=== PATIENT | female | born 1975 | race Caucasian/White ===

== ENCOUNTER 2016-11-15 13:39 | Emergency (ER) | payer OTHER ==
[~2016-11-15] VITALS: Ht 162.6 cm; Wt 78.6 kg
[~2016-11-15 13:39] MED LIST: BUPR100T7 PO; DICL250C PO
[2016-11-15 13:50] VITALS: BP 108/68; PULSE 84; RESP 16; O2SAT 99
--- NOTE | 2016-11-15 15:37 | ED.REPORT ---
HPI-General Illness Date of Service Nov 15, 2016 ED Provider: Abad Wagner MD A 41 year old female with a history of thoracic outlet syndrome, chronic back pain and asthma is referred to the ED from Urgent Care due to chest pain. The pt has been experiencing a tight chest pain intermittently for two weeks. The pain is currently rated between 3/10 and 5/10 and radiates into her left arm and back. It is not exertional. This is accompanied by nausea, cough and pleuritic pain intermittently since onset, left hand numbness today and a gradual onset migraine for five days. She has experienced migraine headaches before but this migraine is accompanied by blurred vision, which is abnormal for her. The migraine is located behind her eyes and is described as an aching pain. She denies fever, shortness of breath, chills and vomiting. The pt believes that her symptoms are due to anxiety or stress, but is concerned because the symptoms are not resolving. The pt previously consumed alcohol daily , but quit two weeks ago. She also changed her diet at that time. The pt has a family history of aneurysm. She denies any other acute complaints at this time. Nursing Notes Stated Complaint: CHEST PAIN Chief Complaint: Chest Pain Nursing Notes Reviewed: Yes Allergies: Coded Allergies: No Known Allergies (Verified Allergy, 03/13/12) Scheduled Bupropion-Expunged Drug, Do Not Renew! (Bupropion SR-Expunged Drug, Do Not Renew !) 100 Mg Tablet.sa 0 PO HS UNABLE TO VERIFY DOSAGE OR FREQUENCY Dicloxacillin Sodium (Dicloxacillin Sodium) 250 Mg Capsule 250 MG PO HS 1/2 tab General Time Seen by MD: 15:36 Chief Complaint Chest pain Hx Obtained From: Patient, Spouse Arrived By: Walk-in Sudden in Onset?: No Onset Occurred: More than a week ago... 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 Physical Exam Constitutional: Well-developed, well-nourished. Not diaphoretic. Head: Normocephalic and atraumatic. Mouth/Throat: Oropharynx is clear and moist. No oropharyngeal exudate. Eyes: EOM are normal. Pupils are equal, round, and reactive to light. Visual gruber normal. Neck: Supple, no tracheal deviation. Cardiovascular: Normal rate, regular rhythm. Equal and intact distal pulses throughout. Pulmonary/Chest: Effort normal and breath sounds normal. No respiratory distress. Abdominal: Soft. No distension. There is no tenderness, rebound, or guarding. Bowel sounds present. Musculoskeletal: Range of motion grossly intact, moving all extremities. No edema or tenderness appreciated. Neurological: AOx3. Grossly nonfocal exam. Strength and sensation intact and equal to bilateral upper and lower extremities. Normal finger to nose testing. Skin: Warm and dry, no rashes or pallor appreciated. Psychiatric: Appropriate mood and affect. Behavior appears normal. Vital Signs Vital Signs Date Time Temp Pulse Resp B/P Pulse Ox O2 Delivery O2 Flow Rate FiO2 11/15/16 21:22 35.8 61 16 105/71 98 Room Air 11/15/16 19:30 63 18 109/61 96 Room Air 11/15/16 13:50 36.8 84 16 108/68 99 Room Air Initial VS: Reviewed Interpretation & Diagnostics Interpretation & Diagnostics: CT Angio Chest PE: IMPRESSION: No pulmonary emboli are present, and there is no sign of aneurysm or aortic dissection. Throughout the visualized chest and upper abdomen no inflammatory process is found. Along the spine a source of back pain is not identified. Dictated by: Harshal Arango M.D. on 11/15/2016 at 20:30 Approved by: Harshal Arango M.D. on 11/15/2016 at 20:32 Lab Results Interpretation Result Diagram: 11/15/16 1525 11/15/16 1525 Test 11/15/16 15:25 White Blood Count 7.2th/mm3 (3.8-10.1) Red Blood Count 4.49mil/mm3 (3.90-5.20) Hemoglobin 14.6g/dL (12.0-15.6) Hematocrit 41.6% (35.0-46.0) Mean Corpuscular Volume 92.7fL (81-100) Mean Corpuscular Hemoglobin 32.5pg (27.0-35.0) Mean Corpuscular Hemoglobin Concent 35.1% (32.0-37.0) Red Cell Distribution Width 12.3% (12.3-15.4) Platelet Count 280bil/L (150-400) Neutrophils (%) (Auto) 54.8% (40-74) Lymphocytes (%) (Auto) 33.1% (14-46) Monocytes (%) (Auto) 10.1% (4-12) Eosinophils (%) (Auto) 1.3% (0-5) Basophils (%) (Auto) 0.6% (0-3) Sodium Level 139mEq/L (134-144) Potassium Level 3.8mEq/L (3.5-5.2) Chloride Level 100mEq/L (97-108) Carbon Dioxide Level 22mmol/L (18-29) Blood Urea Nitrogen 9mg/dL (6-24) Creatinine 0.69mg/dL (0.57-1.00) Estimat Glomerular Filtration Rate 133mL/min (>59) Glucose Level 98mg/dL (60-99) Calcium Level 9.6mg/dL (8.5-10.1) Magnesium Level 1.9mg/dL (1.6-2.6) Total Bilirubin 0.6mg/dL (0.0-1.2) Aspartate Amino Transf (AST/SGOT) 19U/L (0-50) Alanine Aminotransferase (ALT/SGPT) 18U/L (0-32) Alkaline Phosphatase 48U/L (25-150) Troponin T < 0.010ug/L (0.0-0.011) Total Protein 7.3g/dL (6.4-8.4) Albumin 4.7g/dL (3.4-5.0) ECG Interpretation ECG Interpretation: normal sinus rhythm with a rate of 71 borderline intraventricular conduction delay no previous EKG for comparison Time: 14:24 Interpreted by: ED physician X-Ray Chest Interpretation Chest Xray Interpretation: IMPRESSION: No acute cardiopulmonary disease. Dictated by: Joe Arellano M.D. on 11/15/2016 at 16:15 Approved by: Joe Arellano M.D. on 11/15/2016 at 16:15 Interpretation / Wet Read by: Interpret - Radiologist Re-Eval/Medical Decision Med Decision/Clinical Course In summary, 41-year-old female with a history of migraine headaches presenting to the ED for evaluation of chest pain. Differential is broad and includes ACS , PE, aortic dissection, pneumothorax, cardiac tamponade, etc. HEART score of 1. No acute ischemic changes on EKG, troponin negative. CT angiogram negative for PE or aortic dissection. No evidence of pneumothorax. No hypertension, muffled heart sounds, or JVD. Vitals grossly within normal limits here in the ED, chest x-ray negative for acute abnormality. CBC, CMP grossly within normal limits. With respect to her headache, she does state that she thinks her father of a ruptured aneurysm in his brain. She does have migraine headaches; this was a gradual onset headache, not worst of life, not thunderclap. She does note some transient blurred vision, however this is mild. No neck stiffness, no fever, normal neurologic examination. Pain is bilateral. We discussed that we could not completely rule out a subtle aneurysmal bleed without advanced imaging; unable to perform CT angiogram of the head and neck given that CT performed of her chest previously. We discussed performing an MRI, however after treatment for her headache here in the ED, she is now feeling better. Again, I reiterated that while I did not think that she had an acute (or sentinel) bleed , without further imaging we would be unable to clearly identify this and that I thought she should follow up with her PCP tomorrow for reevaluation. She verbalizes understanding and agreement with this plan. I also think that she can discuss whether or not she needs a stress test with her primary care physician at that time. Plan discharge home with very careful return precautions, PCP follow-up tomorrow. Source of Hx: Old records Time of Eval: 19:29 Patient Status: Condition improved Re-Evaluation/Progress Note: Pt rechecked, who is comfortable. Imaging options are discussed. Time of Eval: 21:08 Patient Status: Condition improved Re-Evaluation/Progress Note: Pt rechecked, who is resting. The diagnosis and plan for discharge are discussed. The pt understands and agrees with the plan. All questions are addressed at this time. Counseled Regarding: Diagnosis, Lab results, Need for follow-up, When/why to return to ED Discharge & Departure Primary Impression: Chest pain Chest pain type: unspecified Qualified Code: R07.9 - Chest pain, unspecified Additional Impression: Headache Headache type: unspecified Headache chronicity pattern: acute headache Intractability: not intractable Qualified Code: R51 - Headache Disposition: Home Discharge Condition All VS Reviewed: Yes Condition: Stable Patient Instructions: Acute Headache (ED), Chest Pain (ED) Additional Instructions: Thank you for allowing us to be a part of your care. I apologize for your wait and thank you for being patient with us today. Your imaging studies and workup here are reassuring. As per our discussion, you have opted to return home and not to have an MRI tonight, and I can't definitively say that there are no acute abnormalities that are causing your headache. Call your primary care physician in the morning to arrange a follow up appointment tomorrow. You may need a stress test so discuss this during follow up. Return to the emergency department if you develop any new or worsening symptoms such as worsening chest pain, severe back pain, abdominal pain, vomiting, vision changes or if there is anything else of concern to you. Referrals: Shauna Oh MD (PCP) Scribe Attestation Portions of this note were transcribed by Yaima Smith. I, Dr. Wagner personally performed the history, physical exam and medical decision-making; I reviewed and confirmed the accuracy of the information in the transcribed note. copies to: Shauna Oh MD,Abad Tillman MD Nov 15, 2016 15:37 YAIMA SMITH Nov 15, 2016 16:01
[2016-11-15 15:39] LABS: BASOPHILS % (AUTO) 0.6 % (0-3); EOSINOPHILS % (AUTO) 1.3 % (0-5); MONOCYTES % (AUTO) 10.1 % (4-12); Mean Corpuscular Hemoglobin 32.5 pg (27.0-35.0); Mean Corpuscular Volume 92.7 fL (81-100); NEUTROPHILS % (AUTO) 54.8 % (40-74); Platelet Count 280 bil/L (150-400)
[2016-11-15 16:07] LABS: TROPONIN T < 0.010 ug/L (0.0-0.011)
[2016-11-15 16:13] LABS: Magnesium 1.9 mg/dL (1.6-2.6)
--- NOTE | 2016-11-15 16:16 | DRSVH ---
PROCEDURE: X-RAY CHEST ONE VIEW, PORTABLE ([id number]) INDICATIONS: 41 year-old female with chest pain. TECHNIQUE: One view of the chest was acquired. COMPARISON: [facility], CR, XR CHEST 2VW, 12/22/2015, 9:55. FINDINGS: Surgical changes and devices: None. Lungs and pleura: No pleural effusions or pneumothorax. Lungs are clear. Mediastinum: Mediastinal contours appear normal. Heart size is normal. Bones and chest wall: No suspicious bony lesions. Overlying soft tissues appear unremarkable. IMPRESSION: No acute cardiopulmonary disease. Dictated by: Joe Arellano M.D. on 11/15/2016 at 16:15 Approved by: Joe Arellano M.D. on 11/15/2016 at 16:15
[2016-11-15] MEDS ORDERED: 0.9% Sodium Chloride 1,000 ML IV ONE (19:08)
[2016-11-15] MEDS ORDERED: ProchlorPERazine 5 mg/mL 2 mL Inj IVPUSH ONE (19:10)
[2016-11-15] MEDS ORDERED: Ondansetron 2 mg/mL 2 mL Inj IVPUSH ONE (19:10)
[2016-11-15 19:30] VITALS: BP 109/61; PULSE 63; RESP 18; O2SAT 96
--- NOTE | 2016-11-15 20:34 | DRSVH ---
PROCEDURE: CT ANGIO CHEST PULMONARY EMBOLISM ([id number]) INDICATIONS: headache, cp, hx aneurysm; eval PE, dissection TECHNIQUE: After the administration of intravenous contrast, 2 mm thick sections acquired from the pulmonary api ga to the posterior costophrenic angles. 3-dimensional maximum intensity projection (MIP) coronal a nd sagittal reformats were then acquired through the thorax. For radiation dose reduction, the follo wing was used: automated exposure control, adjustment of mA and/or kV according to patient size. COMPARISON: [facility], CR, XR CHEST 1VW (PORTABLE), 11/15/2016, 15:30. FINDINGS: Image quality: Excellent. Pulmonary arteries: Pulmonary arteries are normal in size, and demonstrate no intraluminal filling d efects to suggest central pulmonary embolism. Lungs and pleura: Lungs are clear. No pleural effusions or pneumothorax. Central and peripheral ai rways are patent. Mediastinum: Heart size is normal, without pericardial effusion. No mediastinal or hilar adenopathy . Thoracic aorta is normal in caliber and enhancement. Esophagus is normal in caliber, without hiat al hernia. Bones and chest wall: No suspicious bony lesions. Ribs and thoracic spine appear intact throughout. Thyroid gland appears normal where well visualized. No axillary or supraclavicular adenopathy. Abdomen: Visualized upper abdominal solid organs appear normal in the early arterial phase of enhanc ement. IMPRESSION: No pulmonary emboli are present, and there is no sign of aneurysm or aortic dissection. Throughout the visualized chest and upper abdomen no inflammatory process is found. Along the spine a source of back pain is not identified. Dictated by: Harshal Arango M.D. on 11/15/2016 at 20:30 Approved by: Harshal Arango M.D. on 11/15/2016 at 20:32
[2016-11-15 21:22] VITALS: BP 105/71; PULSE 61; RESP 16; O2SAT 98
== END 2016-11-15 21:15 | disposition home or self-care (01) ==
LOC: SED 13:39
DX: R07.9 Chest pain, unspecified (principal); R51 Headache; R11.0 Nausea; R05 Cough; J45.909 Unspecified asthma, uncomplicated; G89.29 Other chronic pain; F17.200 Nicotine dependence, unspecified, uncomplicated
CPT/HCPCS: 36415; 71010; 71275; 80053; 81025; 83735; 84484; 85025; 93005; 96361; 96374; 96375; 99285; J0780; J1200; J2405; J7030; Q9967